=== PATIENT | male | born 1955 | race Hispanic/Latino ===

== ENCOUNTER → 2022-01-09 | Outpatient (CLI) | payer BC, MEDICARE ==
[~2022-01-09] MED LIST: REGADENOSON 0.4 MG/5 ML PF SYG IVP SCH
== END | disposition home or self-care (01) ==
LOC: SHCH 08:47
PROVIDERS: ATTEND Internal Medicine Cardiovascular Disease
DX: I25.10 Atherosclerotic heart disease of native coronary artery without angina pectoris (principal); R07.9 Chest pain, unspecified; I21.9 Acute myocardial infarction, unspecified
CPT/HCPCS: 78452; 93017; 96374; A9500 ×2; J2785

== ENCOUNTER 2022-04-30 06:59 | Day surgery (SDC) | payer BC, MEDICARE ==
[2022-04-28 12:06] LABS: BASOPHILS % (AUTO) 0.5 % (0.0-5.0); EOSINOPHILS % (AUTO) 3.6 % (0.0-8.0); HEMATOCRIT 40.8 % (42-54); LYMPHOCYTES % (AUTO) 24.9 % (21.0-51.0); MEAN CORPUSCULAR HEMOGLOBIN 32.3 pg (27.0-33.0); MEAN CORPUSCULAR HGB CONC 34.3 g/dL (32.0-36.0); MONOCYTES % (AUTO) 10.5 % (3.0-13.0); NEUTROPHILS % (AUTO) 60.3 % (40.0-77.0); PLATELET COUNT (AUTO) 187 K/uL (130-400); RED BLOOD CELL COUNT(AUTO) 4.34 MIL/uL (4.50-6.20); RED CELL DISTRIBUTION WIDTH 11.6 % (11.0-15.5); WHITE BLOOD COUNT (AUTO) 5.9 K/uL (4.8-10.8)
[2022-04-28 12:16] LABS: CREATININE 1.1 mg/dL (0.5-1.5)
[2022-04-28 12:19] LABS: INR 1.09 (0.85-1.15); PROTHROMBIN TIME 11.8 SEC (9.6-11.6)
[2022-04-28 12:21] LABS: PARTIAL THROMBOPLASTIN TIME 26.8 SEC (26.3-35.5)
[2022-04-28 12:35] LABS: B-TYPE NATRIURETIC PEPTIDE 24 pg/mL (0-100)
[2022-04-28 12:35] LABS: APPEARANCE,URINE CLEAR (CLEAR); BILIRUBIN,URINE NEGATIVE (NEGATIVE); COLOR,URINE YELLOW (YELLOW); GLUCOSE, URINE (UA) NEGATIVE (NEGATIVE); KETONES,URINE NEGATIVE (NEGATIVE); LEUKOCYTE ESTERASE ,URINE NEGATIVE (NEGATIVE); NITRATE,URINE NEGATIVE (NEGATIVE); OCCULT BLOOD,URINE NEGATIVE (NEGATIVE); PROTEIN,URINE NEGATIVE (NEGATIVE); UROBILINOGEN,URINE 0.2 mg/dL (0.2-1.0)
[2022-04-28 16:54] VITALS: BP 127/68
[2022-04-30] VITALS (11 sets, daily range): BP systolic 110–155; BP diastolic 53–78
[~2022-04-30] VITALS: Ht 172.7 cm; Wt 65.9 kg
[2022-04-30] MEDS ORDERED: 0.9%NACL 1000ML 1,000 ML IV SCH ×2 (08:00→12:30)
[2022-04-30] MEDS ORDERED: CLOP75TA32 PO (08:58)
[2022-04-30] MEDS ORDERED: LISI5TAB21 PO (08:58)
[2022-04-30] MEDS ORDERED: RANO500T6 PO (08:58)
[2022-04-30] MEDS ORDERED: AEC81 PO (08:58)
[2022-04-30] MEDS ORDERED: ISOS30TA92 PO (08:58)
[2022-04-30] MEDS ORDERED: ATOR10 PO (08:58)
[2022-04-30] MEDS ORDERED: MIDAZOLAM HCL 1 MG/ML 2ML VIAL ONE (10:46)
[2022-04-30] MEDS ORDERED: IOHEXOL 350 MG/ML 100ML INFUS..BTL IV ONE (10:46)
[2022-04-30] MEDS ORDERED: LIDOCAINE HCL 1% MDV 50ML VIAL ONE (10:46)
[2022-04-30] MEDS ORDERED: FENTANYL CITRATE PF 50 MCG/1 ML 2ML VIAL ONE (10:46)
[2022-04-30] MEDS ORDERED: ATROPINE 1MG SYG IVP ONE (10:56)
[2022-04-30] MEDS ORDERED: BIVALIRUDIN 250 MG/VIAL IV ONE (11:33)
[2022-04-30] MEDS ORDERED: NITROGLYCERIN 50MG VIAL ONE (11:38)
[2022-04-30] MEDS ORDERED: IOHEXOL-350 75 ML VIAL IV ONE (11:41)
[2022-04-30] MEDS ORDERED: IOHEXOL-350 50ML VIAL IV ONE (11:58)
[2022-04-30] MEDS ORDERED: CLOPIDOGREL 300MG TAB ONE (12:01)
[2022-04-30] MEDS ORDERED: GLUCAGON 1MG KIT 1 MG ML IM PRN (12:30)
[2022-04-30] MEDS ORDERED: DEXTROSE 50%-WATER 50 ML DISP.SYRIN IV PRN (12:30)
== END 2022-04-30 18:40 | disposition home or self-care (01) ==
LOC: DAH 06:59
PROVIDERS: ATTEND Internal Medicine Cardiovascular Disease
DX: I25.119 Atherosclerotic heart disease of native coronary artery with unspecified angina pectoris (principal); I11.9 Hypertensive heart disease without heart failure; E78.5 Hyperlipidemia, unspecified; I25.2 Old myocardial infarction; K21.9 Gastro-esophageal reflux disease without esophagitis; Z72.89 Other problems related to lifestyle; Z83.3 Family history of diabetes mellitus; Z80.7 Family history of other malignant neoplasms of lymphoid, hematopoietic and related tissues; Z98.890 Other specified postprocedural states; Z90.49 Acquired absence of other specified parts of digestive tract; Z95.5 Presence of coronary angioplasty implant and graft; Z79.01 Long term (current) use of anticoagulants; Z79.82 Long term (current) use of aspirin
CPT/HCPCS: 36415; 71045; 80048; 81003; 82948; 83880; 85025; 85610; 85730; 93005; 93458; A4215; A4216; A4221; A4222; A4223 ×3; A4606; A4663; C1725; C1760 ×2; C1769; C1874 ×2; C1887; C1894 ×2; C9600; C9601; J0583; J1644; J2250; J3010; J3490 ×2; J7030; Q9965; Q9967 ×3; 99156; 99157; J0461

== ENCOUNTER 2024-03-18 19:45 | Emergency (ER) | payer BC, MEDICARE ==
[~2024-03-18] VITALS: Ht 172.7 cm; Wt 65.8 kg
[~2024-03-18 19:45] MED LIST changes: +AEC81 PO; +ATOR10 PO; +CLOP75TA32 PO; +CYCL-309 PO; +ISOS30TA92 PO; +LEVO750T39 PO; +LISI5TAB21 PO; +NAPR-1023 PO; +RANO500T6 PO; -REGADENOSON 0.4 MG/5 ML PF SYG IVP SCH
[2024-03-18 20:28] LABS: BASOPHILS # (AUTO) 0.03 K/uL (0.00-0.20); BASOPHILS % (AUTO) 0.6 % (0.0-5.0); EOSINOPHILS # (AUTO) 0.15 K/uL (0.00-0.70); EOSINOPHILS % (AUTO) 2.8 % (0.0-8.0); HEMATOCRIT 41.6 % (42-54); IMMATURE GRANULOCYTE ABSOLUTE 0.01 K/uL (0-1); LYMPHOCYTES # (AUTO) 2.5 K/uL (1.0-4.8); LYMPHOCYTES % (AUTO) 47.6 % (21.0-51.0); MEAN CORPUSCULAR HEMOGLOBIN 32.4 pg (27.0-33.0); MEAN CORPUSCULAR HGB CONC 34.9 g/dL (32.0-36.0); MEAN CORPUSCULAR VOLUME 93.1 fL (79-99); MONOCYTES # (AUTO) 0.5 K/uL (0.1-1.0); MONOCYTES % (AUTO) 9.7 % (3.0-13.0); NEUTROPHILS # (AUTO) 2.1 K/uL (1.8-7.7); NEUTROPHILS % (AUTO) 39.1 % (40.0-77.0); PLATELET COUNT (AUTO) 224 K/uL (130-400); RED BLOOD CELL COUNT(AUTO) 4.47 MIL/uL (4.50-6.20); WHITE BLOOD COUNT (AUTO) 5.3 K/uL (4.8-10.8)
[2024-03-18 20:35] LABS: CREATININE 1.1 mg/dL (0.5-1.3); POTASSIUM 3.9 mmol/L (3.5-5.1)
[2024-03-18 20:40] LABS: ALBUMIN 4.1 g/dL (3.5-5.0); TOTAL PROTEIN, SERUM 7.2 g/dL (6.0-8.3)
[2024-03-18 20:59] LABS: B-TYPE NATRIURETIC PEPTIDE < 5 pg/mL (0-100)
[2024-03-18 21:30] LABS: APPEARANCE,URINE CLEAR (CLEAR); BILIRUBIN,URINE NEGATIVE (NEGATIVE); COLOR,URINE LIGHT-YELLOW (YELLOW); GLUCOSE, URINE (UA) NEGATIVE (NEGATIVE); KETONES,URINE NEGATIVE (NEGATIVE); LEUKOCYTE ESTERASE ,URINE NEGATIVE Leu/uL (NEGATIVE); NITRATE,URINE NEGATIVE (NEGATIVE); OCCULT BLOOD,URINE NEGATIVE (NEGATIVE); PROTEIN,URINE NEGATIVE (NEGATIVE); UROBILINOGEN,URINE 0.2 mg/dL (0.2-1.0)
[2024-03-18 21:32] LABS: ADD UA MICROSCOPIC NO
[2024-03-19 00:36] VITALS: BP 111/58; PULSE 59; RESP 16; O2SAT 97
== END 2024-03-19 00:43 | disposition home or self-care (01) ==
LOC: EDH 19:45
DX: R07.9 Chest pain, unspecified (principal); F10.10 Alcohol abuse, uncomplicated; I95.9 Hypotension, unspecified; E78.00 Pure hypercholesterolemia, unspecified; Z79.899 Other long term (current) drug therapy
CPT/HCPCS: 36415; 71045; 80053; 81003; 82550; 83880; 84484; 85025; 93005